=== PATIENT | female | born 1940 | race Two or more races ===

== ENCOUNTER → 2021-03-04 | Outpatient (CLI) | payer MEDICARE, BC | END | disposition home or self-care (01) | LOC: WOU 11:23 | PROVIDERS: ATTEND Specialist | DX: M43.16 Spondylolisthesis, lumbar region (principal); G70.00 Myasthenia gravis without (acute) exacerbation; G25.0 Essential tremor; E11.9 Type 2 diabetes mellitus without complications | CPT/HCPCS: G0463 ==